=== PATIENT | male | born 1995 | race Caucasian/White ===

== ENCOUNTER 2022-11-08 21:16 | Emergency (ER) | payer OTHER, BC ==
[2022-11-08 21:36] LABS: BASOPHILS 0.5 % (0-2); EOSINOPHILS 1.4 % (0-6); HEMATOCRIT 44.5 % (35.0-50.0); HEMOGLOBIN 14.5 g/dL (12.0-18.0); LYMPHOCYTES 18.5 % (24-44); MCH 27.1 (27-36); MCHC 32.7 g/dl (30-36); MCV 83.1 fl (81-99); MONOCYTES 8.9 % (0-12); NEUTROPHILS 70.7 % (39-80); PLATELET COUNT 322 K/uL (140-440); RBC 5.35 M/ul (4.3-5.7); RDW 13.4 (10.5-15.0)
[2022-11-08 21:51] LABS: ALBUMIN 4.4 g/dL (3.4-5.0); ALBUMIN/GLOBULIN RATIO 1.13 (1.1-2.4); ALCOHOL, MEDICAL <3 ng/dL (<3); ALKALINE PHOSPHATASE 69 U/L (46-116); ALT (SGPT) 48 U/L (14-59); ANION GAP 12.5 (7-21); AST (SGOT) 25 U/L (15-37); BILIRUBIN, TOTAL 0.3 ng/dL (0.2-1.0); CALCIUM 9.1 mg/dL (8.5-10.1); CARBON DIOXIDE 26 mmol/L (21-32); CHLORIDE 107 mmol/L (98-107); CREATINE KINASE 765 U/L (39-308); CREATININE, SERUM 1.25 mg/dL (0.70-1.30); GLOMERULAR FILTRATION RATE,EST 82 mL/min (>60); POTASSIUM 3.5 mmol/L (3.5-5.1); PROTEIN, TOTAL 8.3 g/dL (6.4-8.2); UREA NITROGEN 15 mg/dL (7-18)
[2022-11-08 23:13] LABS: BILIRUBIN, URINE NEGATIVE (negative); BLOOD/HGB, URINE NEGATIVE (Negative); KETONE, URINE TRACE (Negative); LEUK ESTERASE, URINE NEGATIVE (negative); NITRITE, URINE NEGATIVE (negative)
[2022-11-08 23:16] LABS: AMPHETAMINES, UR NEGATIVE (NEGATIVE); BARBITURATES, UR NEGATIVE (NEGATIVE); BENZODIAZEPINES, UR NEGATIVE (NEGATIVE); BUPRENORPHINE,UR NEGATIVE (NEGATIVE); COCAINE, UR NEGATIVE (NEGATIVE); MARIJUANA (THC), UR NEGATIVE (NEGATIVE); MDMA, UR NEGATIVE (NEGATIVE); METHADONE, UR NEGATIVE (NEGATIVE); METHAMPHETAMINE, UR NEGATIVE (NEGATIVE); OPIATES, UR NEGATIVE (NEGATIVE); OXYCODONE, UR NEGATIVE (NEGATIVE); PHENCYCLIDINE, UR NEGATIVE (NEGATIVE); TRICYCLIC ANTIDEPRESSANT, UR NEGATIVE (NEGATIVE)
[2022-11-08 23:50] VITALS: BP 118/55
[2022-11-08 23:50] LABS: ABO O; ANTIBODY SCREEN NEGATIVE; RH POSITIVE
== END 2022-11-08 23:49 | disposition home or self-care (01) ==
LOC: ED 21:16
PROVIDERS: Internal Medicine
DX: S06.0X0A Concussion without loss of consciousness, initial encounter (principal); M79.622 Pain in left upper arm; M79.89 Other specified soft tissue disorders; R00.0 Tachycardia, unspecified; V86.55XA Driver of 3- or 4- wheeled all-terrain vehicle (ATV) injured in nontraffic accident, initial encounter
CPT/HCPCS: 36415; 70450; 73060; 73130; 80053; 81003; 82553; 83690; 85025; 86850; 86900; 86901; 99284-25; G0480